=== PATIENT | male | born 1995 | race African-American/Black ===

== ENCOUNTER 2023-12-23 00:21 | Emergency (ER) | payer SELFPAY ==
[~2023-12-23] VITALS: Ht 177.8 cm; Wt 125.0 kg
[2023-12-23 00:25] VITALS: O2SAT 97
[2023-12-23] MEDS: SODIUM CHLORIDE 0.9% 1,000 ML IV ONE (01:08)
[2023-12-23] MEDS: KETOROLAC 15MG/ML VIAL IV ONE (01:08)
[2023-12-23 01:13] LABS: BASOPHILS % 0.3 % (0.0-2.0); DIFFERENTIAL COMMENT 0; EOSINOPHILS % 0.4 % (0.0-5.0); HEMATOCRIT. 40.8 % (42.0-52.0); MEAN CORPUSCULAR HEMOGLOBIN 25.4 pg (28.0-32.0); MEAN CORPUSCULAR HGB CONC 34.2 g/dL (31.0-37.0); MEAN CORPUSCULAR VOLUME 74.1 fL (80.0-94.0); MEAN PLATELET VOLUME 8.2 fl (7.4-10.4); MONOCYTES % 11.5 % (2.0-8.0); NEUTROPHILS % 68.8 % (40.0-76.0); PLATELET 280 x1000/uL (130-400); RED BLOOD CELL COUNT 5.51 mill/uL (4.7-6.1); WHITE BLOOD COUNT 10.3 x1000/uL (4.5-11.0)
[2023-12-23 01:20] LABS: CARBON DIOXIDE 24 mEq/L (21-32); CHLORIDE 106 mEq/L (98-107); POTASSIUM 3.4 mEq/L (3.5-5.1); SODIUM 141 mEq/L (136-145)
[2023-12-23 01:21] LABS: CALCIUM 9.4 mg/dL (8.7-10.4)
[2023-12-23 01:26] LABS: GLUCOSE 99 mg/dL (70-105); UREA NITROGEN BLOOD 13 mg/dL (9-23)
[2023-12-23 01:27] LABS: ETHANOL BLOOD < 10 mg/dL (<10); TROPONIN I HIGH SENSITIVITY 6 ng/L (3.0-53)
[2023-12-23 02:24] LABS: *AMPHETAMINES SCREEN URINE NEGATIVE (NEGATIVE); *BARBITURATES SCREEN URINE NEGATIVE (NEGATIVE); *BENZODIAZEPINES SCREEN URINE NEGATIVE (NEGATIVE)
[2023-12-23 02:25] LABS: *COCAINE SCREEN URINE NEGATIVE (NEGATIVE); CANNABINOID URINE SCREEN NEGATIVE (NEGATIVE); ECSTASY MDMA SCREEN URINE NEGATIVE (NEGATIVE); METHADONE URINE SCREEN NEGATIVE (NEGATIVE); OPIATES URINE SCREEN NEGATIVE (NEGATIVE); PHENCYCLIDINE URINE SCREEN NEGATIVE (NEGATIVE)
[2023-12-23 03:29] LABS: TROPONIN I HIGH SENSITIVITY 6 ng/L (3.0-53)
[2023-12-23] MEDS ORDERED: IBUP-2029 MT (04:56)
[2023-12-23 05:36] VITALS: BP 158/73; PULSE 87; RESP 20; TEMP 98.1
== END 2023-12-23 05:42 | disposition home or self-care (01) ==
LOC: ER 00:21
DX: R07.2 Precordial pain (principal); Z88.8 Allergy status to other drugs, medicaments and biological substances
CPT/HCPCS: 80305; 80048; 80320; 85025; 85379; 84484; 36415; 71045; 96361; 96374; 99284; J1885; J7030; G0480